=== PATIENT | male | born 1965 | race Caucasian/White ===

== ENCOUNTER → 2018-03-09 07:11 | Outpatient (CLI) | payer MEDICARE, SELFPAY ==
--- NOTE | 2018-03-09 10:15 | NEURO ---
NCS and/or EMG Patient Report Ordering Doctor: Cony Le DATE OF SERVICE: 03/09/18 This is a left upper extremity nerve conduction study and EMG performed on this 52-year-old male with a long history of neck pain and loss of sensation into his fourth third and fifth digits. He apparently had a fall in 2011 due to neck pain, in 2012 he had a lower cervical discectomy and has been told recently that he has an upper thoracic disc issue now. Examination there is a sensory level from his left T2-T5 posteriorly Left upper extremity sensory and motor nerve conduction study is performed demonstrating mild prolongation of the median motor distal latency at the wrist with intact amplitude and conduction velocity. More significantly the ulnar distal latency is prolonged across the elbow with reduction in amplitude across the elbow and mild reduction in conduction velocity. The ulnar F wave is is prolonged compared to the median F-wave. The radial sensory, ulnar sensory and median sensory responses are intact. Left upper extremity needle electromyography is performed. Muscles evaluated included the first dorsal osseous abductor pollicis brevis and abductor digiti quinti brachioradialis biceps triceps deltoid muscles and left C7, T1 and T2 paraspinal muscles. All muscles in the arm demonstrated normal insertional activity with absence of pathologic spontaneous activity with normal motor unit recruitment pattern and amplitude however at the T2 level on the left the patient did demonstrate fibrillation potentials and fasciculation potentials. Impression: 1. T2 radiculopathy 2. Left ulnar neuropathy at the elbow. 3. Mild median neuropathy at the left wrist this is likely an incidental finding
== END ==
PROVIDERS: Family Provider Family Medicine; PCP Family Medicine; Visit Provider Family Medicine
DX: M50.23 Other cervical disc displacement, cervicothoracic region (principal)
CPT/HCPCS: 95886; 95909

== ENCOUNTER → 2018-08-05 09:33 | Outpatient (CLI) | payer MEDICARE, SELFPAY ==
--- NOTE | 2018-08-05 09:36 | RAD_ITS ---
STUDY: X-RAY - RIGHT HAND, ATTENTION FIRST FINGER REASON FOR EXAM: Male, 53 years old. Trauma TECHNIQUE: 3 view(s) of the finger were obtained. COMPARISON: None. FINDINGS: Normal metacarpal head. Normal metacarpophalangeal joint. Normal proximal phalanx. Normal middle phalanx. Normal distal phalanx. Normal proximal interphalangeal joint. Normal distal interphalangeal joint. RAD/Finger(s) Min 2 Views IMPRESSION: Normal x-ray examination of the finger. Electronically Signed: John Manzano MD at 16:56 EDT , Service support ,
== END ==
PROVIDERS: Family Provider Family Medicine; PCP Family Medicine; Visit Provider Family Medicine
DX: S69.91XA Unspecified injury of right wrist, hand and finger(s), initial encounter (principal)
CPT/HCPCS: 73140

== ENCOUNTER → 2018-08-26 16:16 | Outpatient (CLI) | payer MEDICARE, SELFPAY ==
--- NOTE | 2018-08-26 16:20 | RAD_ITS ---
STUDY: X-RAY - CERVICAL SPINE REASON FOR EXAM: Male, 53 years old. fusion in 2013, neck pain and stiffness TECHNIQUE: 6 view(s) of the cervical spine were obtained. COMPARISON: None FINDINGS: Normal anterior atlantoaxial articulation. Normal odontoid process. There is straightening of the normal cervical lordosis. There is multi-level endplate spondylosis. There is multi-level degenerative disc disease with multilevel disc space narrowing. There is multi-level osseous foraminal stenosis. The soft tissue structures are unremarkable. RAD/Cerv Spine 4 or 5 Views IMPRESSION: There is multi-level degenerative disc disease with multilevel disc space narrowing. There is multi-level osseous foraminal stenosis. Electronically Signed: Sj Solis MD at 14:31 EDT Tel , Service support ,
== END ==
PROVIDERS: Family Provider Family Medicine; PCP Family Medicine; Referring Provider Family Medicine; Visit Provider Family Medicine
DX: M50.30 Other cervical disc degeneration, unspecified cervical region (principal)
CPT/HCPCS: 72050

== ENCOUNTER → 2020-01-11 12:22 | Outpatient (CLI) | payer MEDICARE, SELFPAY ==
[2020-01-11 14:29] LABS: Anion Gap 2 (5-15); BUN 16 mg/dL (7-18); BUN/Creat Ratio 17.4 RATIO (10-20); Calcium,Total 9.1 mg/dL (8.5-10.1); Chloride 111 mmol/L (98-107); Creatinine, Serum 0.92 mg/dL (0.70-1.30); EST Glomerular Filtration Rate 91 mL/min (>60); Est Glom Filt Rate - Afr Amer 110 mL/min (>60); Glucose 80 mg/dL (74-106); Potassium 4.5 mmol/L (3.5-5.1); Sodium Level 143 mmol/L (136-145)
== END ==
PROVIDERS: PCP Family Medicine; Referring Provider Family Medicine; Visit Provider Family Medicine
DX: Z00.00 Encounter for general adult medical examination without abnormal findings (principal)
CPT/HCPCS: 36415; 80048

== ENCOUNTER 2020-01-27 08:29 | Day surgery (SDC) | payer MEDICARE, SELFPAY ==
[2020-01-27 09:08] VITALS: BP 110/64; PULSE 68; RESP 169; TEMP 36.8; O2SAT 96; BMI 23.3
[2020-01-27] MEDS: Lactated Ringers 1,000 ML 100 ML IV (09:14)
--- NOTE | 2020-01-27 10:00 | HP.PCM_ITS ---
History of Present Illness Date of Admission: 01/27/20 The patient is a 54 year old M here for screening colonoscopy. The patient is never had a screening colonoscopy. He has no family history of colon cancer. He denies any abdominal pain or blood in his stool. Past Medical/Surgical History - Planned Operation Planned Operative Procedure/s: COLONOSCOPY Date of Operative Procedure: 01/27/20 Permit Signed: Yes S.O.S: No Is This Patient Having a Total Joint: No - Previous Hospitalizations/Surgeries HX Hospitalizations: No HX of Surgeries: FUSION IN NECK. R ARM BROKEN Any Problems With Anesthesia: No You/Your Family Experience Fever (Hyperthermia) With Anes: No Cholinesterase deficiency: No - Cardiovascular Hx Chest Pain within Last 2 months: No Hx of Irregular Heartbeat and/or Afib: No Hx Heart Attack: No Hx Congestive Heart Failure: No Hx Rheumatic Fever: No Hx Hypertension: No Hx Internal Defibrillator: No Hx Pacemaker: No Hx Cardiac Catheterization: No Hx Cardiac Surgery/Stents/Etc.: No Hx Stress Test: No HX Edema: No Hx Pain in Legs when Walking/Leg Cramps: No - Respiratory Chronic Cough: No HX of Shortness of Breath: No Hoarseness: No Hx Chronic Obstructive Pulmonary Disease (COPD): No Hx Asthma: No Hx Emphysema: No Hx Sleep Apnea: No Hx Oxygen Use at Home: No Hx Respiratory Tract Infection/Cold (presently): No Do You Snore Loudly (louder than talking or can be heard): No Do You Often Feel Tired/ Fatigued/ Sleepy Dring Daytime?: No Has Anyone Observed You Stop Breathing During Sleep?: No Result (for STOP score): Negative Hx Smoking: Yes Smoking Status: Former smoker - Gastrointestinal Hx Gastroesophageal Reflux: No Hx Gastrointestinal Disorders: No Hx Gastrointestinal Bleed: No Hx Ulcer: No Hx Hiatal Hernia: No Difficulty Chewing/Swallowing: No Recent Onset of Swallowing Problems: No Special diet followed at home: No Hx Unplanned Weight Loss of 20#: No HX Unplanned Weight Gain of 20#: No - Neurological Hx Seizures: No HX Syncope/Blackout Spells/Unconsciousness: No Hx CVA/Stroke: No Hx Transient Ischemic Attacks (TIA): No Hx Multiple Sclerosis: No Hx Parkinson's Disease: No Hx Head/Neck Injury: Yes - SURGERY-HERNIATED, NERVE DAMAGE Hx Headaches: No Hx Back Injury/Pain: No Recent Onset of Speech Difficulty: No Restless Legs: No Does patient have nerve stimulator: No - Blood Disorder Hx Leukemia: No Bleeding Tendencies: No Hx Deep Vein Thrombosis: No Hx High Cholesterol: No Blood Transmitted Disease: No Hx Hepatitis: No Hx Cirrhosis: No Hx Anemia: No Hx Blood Disorders: No - Genitourinary Hx Renal Disease: No - Musculoskeletal Hx Arthritis: Yes Hx Rheumatoid Arthritis: No Hx Gout: No Recent Onset of an Orthopedic Problem: No - Endocrine Hx Diabetes: No Thyroid Disease: No Hx Steroid Therapy: No - Psycho/Social Hx Substance Use: No Hx Alcohol Use: Yes - RARELY Hx Anxiety: No Hx Depression: No Mental Illness: No Hx Dementia: No - Miscellaneous Hx Cancer: No Recent Exposure to Contagious Disease: No Active MRSA: No Hx of C-Diff: No Any Loose Teeth: No Allergies Penicillins [PCN] Allergy (Verified 01/27/20 09:07) Itching Sulfa (Sulfonamide Antibiotics) Allergy (Verified 01/27/20 09:07) Unknown HAD ALLERGY TESTING CHILD- THIS WAS ON REPORT - Discharge Is Pt Admitted From a Long-Term, or a Detention: No Who Could Help: NEIGHBOR After D/C, Where Do you Plan to Go: Return Home - Physical Exam Vitals/I&O's: Vital Signs Temp Pulse Resp BP Pulse Ox 98.2 F 68 169 H 110/64 96 01/27/20 09:08 01/27/20 09:08 01/27/20 09:08 01/27/20 09:08 01/27/20 09:08 Oxygen Delivery Method Room Air Weight: 167 lb 12.348 oz Body Mass Index (BMI) 23.3 General: Alert, Oriented x3 Lungs: Normal air movement Cardiovascular: Regular rate, Regular Rhythm Abdomen: Soft, Non Tender, Non-Distended Current Medications Lactated Ringer's () 1,000 mls @ 100 mls/hr IV .Q10H JUDI Last Admin: 01/27/20 09:14 Dose: 100 mls/hr Documented by: Assessment/Plan 54-year-old male for screening colonoscopy I explained endoscopy in detail to the patient. I explained the risks including but not limited to stroke or heart attack with anesthesia, perforation of the GI tract, bleeding, infection. I explained that any of these could necessitate further emergency surgery. The patient understands and all questions were answered sufficiently. The patient wishes to proceed with procedure. Lisandro Dailey MD Pager: [facility] [address] [place] [address] [address] [place] [address] Office: Surgery Risks - Colonoscopy Risks Include but are not Limited To: Risks include but are not limited to: Bleeding, perforation requiring further surgery, inability to complete colonoscopy requiring barium enema.
--- NOTE | 2020-01-27 10:33 | OP.COLON_ITS ---
Patient Name: Christoph Arrington Procedure Date: 01/27/2020 10:01 AM Date of : 1965 Age: 54 Procedure: Colonoscopy Indications: Screening for colorectal malignant neoplasm Providers: Lisandro Dailey MD Referring MD: Cony Le Medicines: Monitored Anesthesia Care Patient Profile: This is a 54 year old male. Refer to note in patient chart for documentation of history and physical. Last Colonoscopy: none. The patient's first colonoscopy is today. Complications: No immediate complications. Procedure: Pre-Anesthesia Assessment: - Prior to the procedure, a History and Physical was performed, and patient medications and allergies were reviewed. The patient's tolerance of previous anesthesia was also reviewed. The risks and benefits of the procedure and the sedation options and risks were discussed with the patient. All questions were answered, and informed consent was obtained. Prior Anticoagulants: The patient has taken no previous anticoagulant or antiplatelet agents. After reviewing the risks and benefits, the patient was deemed in satisfactory condition to undergo the procedure. After I obtained informed consent, the scope was passed under direct vision. Throughout the procedure, the patient's blood pressure, pulse, and oxygen saturations were monitored continuously. The pediatric colonoscope was introduced through the anus and advanced to the cecum, identified by appendiceal orifice and ileocecal valve. The colonoscopy was performed without difficulty. The patient tolerated the procedure well. The quality of the bowel preparation was good. Scope In: 10:12:20 AM Scope Withdrawal Time 0 hours 6 minutes 9 seconds Scope Out: 10:31:25 AM Total Procedure Duration Time 0 hours 19 minutes 5 seconds Findings: The entire examined colon appeared normal on direct and retroflexion views. Impression: - The entire examined colon is normal on direct and retroflexion views. - No specimens collected. Recommendation: - Discharge patient to home. - Resume previous diet. - Continue present medications. - Repeat colonoscopy in 10 years for screening purposes. Procedure Code(s): --- Professional --- 18522, Colonoscopy, flexible; diagnostic, including collection of specimen(s) by brushing or washing, when performed (separate procedure) Diagnosis Code(s): --- Professional --- Z12.11, Encounter for screening for malignant neoplasm of colon CPT copyright 2017 [employer]. All rights reserved. The codes documented in this report are preliminary and upon resource management planner review may be revised to meet current compliance requirements. Lisandro Dailey MD 01/27/2020 10:33:19 AM This report has been signed electronically. Number of Addenda: 0 Note Initiated On: 01/27/2020 10:01 AM
--- NOTE | 2020-01-27 10:34 | OP.CCLET_ITS ---
01/27/2020 Cony Le [address] [place] [address] Re : Colonoscopy procedure for Christoph Murphy Dear Dr. Le This procedure was performed on Monday, January 27, 2020. My impressions and recommendations are as follows: Impressions : - The entire examined colon is normal on direct and retroflexion views. - No specimens collected. Recommendations : - Discharge patient to home. - Resume previous diet. - Continue present medications. - Repeat colonoscopy in 10 years for screening purposes. My findings are described in the full procedure note, which is enclosed. If I can be of further assistance, please feel free to contact me at Doctor phone number(s): , Work: . Sincerely, Lisandro Dailey MD 01/27/2020 10:33:19 AM This report has been signed electronically.
[2020-01-27 10:35] VITALS: BP 110/64; BP 89/47; PULSE 59; RESP 16; TEMP 37.1; O2SAT 100
[2020-01-27 10:40] VITALS: BP 110/64; BP 83/44; PULSE 59; RESP 14; O2SAT 99
[2020-01-27 10:45] VITALS: BP 100/62; BP 110/64; PULSE 58; RESP 14; O2SAT 97
[2020-01-27 10:51] VITALS: BP 110/64; BP 99/58; PULSE 82; RESP 14; TEMP 36.8; O2SAT 100
[2020-01-27 11:20] VITALS: BP 110/64
== END 2020-01-27 11:22 | disposition home or self-care (01) ==
LOC: EN 08:30 → AC 08:33
PROVIDERS: PCP Family Medicine; Referring Provider Family Medicine; Visit Provider Surgery
PROC: 0DJD8ZZ Inspection of Lower Intestinal Tract, Via Natural or Artificial Opening Endoscopic (ICD-10-PCS; CPT 45378; principal; 2020-01-27 09:55)
DX: Z12.11 Encounter for screening for malignant neoplasm of colon (principal); Z87.891 Personal history of nicotine dependence
CPT/HCPCS: G0121; J7120; J2405

== ENCOUNTER 2020-07-24 13:57 | Emergency (ER) | payer MEDICARE, SELFPAY ==
[2020-07-24 13:58] VITALS: BP 132/89; PULSE 76; RESP 16; TEMP 36.8; O2SAT 99; BMI 24.5
--- NOTE | 2020-07-24 13:59 | NURSING ---
NO OLD EKGS
--- NOTE | 2020-07-24 14:10 | EKG12_ITS ---
Test Reason : CP Blood Pressure : / mmHG Vent. Rate : 072 BPM Atrial Rate : 072 BPM P-R Int : 188 ms QRS Dur : 084 ms QT Int : 408 ms P-R-T Axes : 059 074 020 degrees QTc Int : 446 ms Normal sinus rhythm Normal ECG Confirmed by KEN HAMMOND, MILES ([id number]), newspaper editor managing KUMAR MORALES ([id number]) on 07/26/2020 10:51:51 AM Referred By: LEWIS Confirmed By:MILES ROGERS MD
--- NOTE | 2020-07-24 14:11 | RAD_ITS ---
STUDY: X-RAY CHEST REASON FOR EXAM: Male, 55 years old. Sudden onset CP this morning TECHNIQUE: PA and lateral views of the chest. COMPARISON: None. FINDINGS: EKG electrodes are seen. The lungs are clear and expanded. Scattered calcified granulomas. Pectus excavatum deformity. There is no demonstrated pleural abnormality. Normal size heart. Normal mediastinum and abdirizak. Normal visualized pulmonary arteries. Normal visualized aortic arch and descending thoracic aorta. There are degenerative changes of the visualized thoracic spine. Normal visualized ribs, clavicles, and shoulders. There is no demonstrated abnormality of the visualized soft tissue structures of the upper abdomen. RAD/Chest PA and Lateral IMPRESSION: Scattered calcified granulomas. Electronically Signed: Kelby oMntero, at 15:08 EDT , Service support ,
--- NOTE | 2020-07-24 14:11 | ED.VIS.GEN ---
History of Present Illness Chief Complaint: Chest Pain Narrative: Patient is a 55-year-old male who presents with chest pain. 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 At about 5:00 this morning when he woke he had left-sided chest pain. He states it feels like he was kicked by horse. He does have pain with inspiration palpation or certain movements such as twisting to the left. He has not short of breath. No diaphoresis nausea or vomiting. He is otherwise been healthy recently. No recent illness. He is a smoker. He denies history of diabetes, hypertension, hyperlipidemia. No recent travel or surgery. No leg pain or swelling. No history of DVT or pulmonary embolism. Past Medical History - Allergies and Home Meds Allergies/Adverse Reactions: Allergies Penicillins [PCN] Allergy (Verified 07/24/20 13:57) Itching Sulfa (Sulfonamide Antibiotics) Allergy (Verified 07/24/20 13:57) Unknown HAD ALLERGY TESTING CHILD- THIS WAS ON REPORT Primary Care Physician: Cony Le MD [Primary Care Provider] - Past Medical History: - - Cervical radiculopathy, prior cervical spinal surgery Smoking Status: Current every day smoker Review of Systems All systems negative except as indicated General: Denies: Fever Eyes: Denies: Visual changes - bilaterally ENT: Denies: Bilateral ear pain Cardiovascular: Reports: Chest pain Respiratory: Denies: Dyspnea Gastrointestinal: Denies: Nausea, Vomiting Musculoskeletal: Denies: Myalgias, Arthralgias Skin: Denies: Rash Neurological: Denies: Headache Hematologic: Denies: Easy bruising Allergy: Denies: Uticaria Physical Exam Vital Signs/Narrative: Vital Signs Temp Pulse Resp BP Pulse Ox 07/24/20 13:58 98.2 F 76 16 132/89 H 99 Inital Vital Signs reviewed: Yes General: Well nourished Head: Normocephalic Eyes: EOMI ENT: Moist mucous membranes Neck: Supple Cardiovascular: Regular rate, Regular rhythm Respiratory: No distress, CTA bilaterally, Chest tenderness - Some reproducible chest tenderness along the left costochondral margin Abdomen: Soft, Nontender Extremities: Nontender Skin: Normal color Neurological: Alert Psychological: Normal affect Diagnostic/Tx/Re-eval Impressions Chest X-Ray 07/24/20 14:11 IMPRESSION: Scattered calcified granulomas. Electronically Signed: Kelby Montero, at 15:08 EDT , Service support , 07/24/20 14:11 Chest PA and Lateral [RAD] Stat Laboratory Results 07/24/20 07/24/20 14:00 14:00 WBC 7.8 RBC 4.73 Hgb 15.0 Hct 44.2 MCV 93.4 MCH 31.7 MCHC 33.9 RDW Std Deviation 45.6 H RDW Coeff of Paul 13.2 Plt Count 272 MPV 11.2 Immature Gran % (Auto) 0.400 Neut % (Auto) 57.4 Lymph % (Auto) 32.9 [place] % (Auto) 7.3 Eos % (Auto) 1.5 Baso % (Auto) 0.5 Absolute Neuts (auto) 4.5 Absolute Lymphs (auto) 2.58 Nucleated RBC % 0 Sodium 140 Potassium 3.9 Chloride 109 H Carbon Dioxide 28.0 Anion Gap 3 L BUN 12 Creatinine 0.95 Estim Creat Clear Calc 90.72 Est GFR (MDRD) Af Amer 106 Est GFR (MDRD) Non-Af 87 BUN/Creatinine Ratio 12.6 Glucose 132 H Calcium 8.9 Troponin I < 0.015 - Medical Decision Making EKG shows sinus rhythm at a rate of 72 with no acute ischemic changes. Chest x-ray shows no acute process. Labs are unremarkable with a negative troponin. Heart score is 2. The presentation is most consistent with chest wall strain. He was given oxycodone here. He was given a prescription for short course of analgesics and advised on supportive care. He understands return for new or worsening symptoms. All questions answered at bedside and patient discharged. ED Disposition - Plan for ED Patient: Disposition: Home or Assisted Living Diagnosis: Chest wall pain Instructions: ED CHEST PAIN [place] Prescriptions: Oxycodone HCl/Acetaminophen [Percocet 5/325] 1 tab PO Q6H PRN PRN 2 Days #8 tab PRN Reason: Pain Prescription Printed Referrals: Cony Le MD [Primary Care Provider] -
[2020-07-24 14:23] LABS: Absolute Lymphocyte Count 2.58 X10^3/uL (0.83-4.51); Absolute Neutrophil Count 4.5 X10^3/uL (2.0-7.7); Basophil# 0.04 X10^3/uL; Basophil% 0.5 % (0-1); Eosinophil# 0.12 X10^3/uL; Eosinophils% 1.5 % (0-5); Hematocrit 44.2 % (40-54); Lymphocyte # 2.58 X10^3/ul (4.0); Lymphocyte % 32.9 % (19-41); Mean Corp Hgb Conc 33.9 g/dL (32-36); Mean Corpuscular Hgb 31.7 pg (27.0-32.0); Mean Corpuscular Volume 93.4 fL (80-94); Mean Platelet Vol. 11.2 fl (6.2-12.0); Monocyte# 0.57 X10^3/uL; Monocyte% 7.3 % (0-10); NRBC Flagged by Analyzer 0 % (0-5); Neutrophil % 57.4 % (47-70); Platelet Count 272 K/mm3 (150-450); RBC Distribution Width CV 13.2 % (11.6-14.6); RBC Distribution Width SD 45.6 fl (35.1-43.9); Red Blood Count 4.73 M/mm3 (4.6-6.2); White Blood Count 7.8 K/mm3 (4.4-11.0)
[2020-07-24 14:35] LABS: Anion Gap 3 (5-15); BUN 12 mg/dL (7-18); BUN/Creat Ratio 12.6 RATIO (10-20); Calcium,Total 8.9 mg/dL (8.5-10.1); Chloride 109 mmol/L (98-107); Creatinine, Serum 0.95 mg/dL (0.70-1.30); EST Glomerular Filtration Rate 87 mL/min (>60); Est Glom Filt Rate - Afr Amer 106 mL/min (>60); Estimated Creatinine Clearance 90.72 ml/min; Glucose 132 mg/dL (74-106); Potassium 3.9 mmol/L (3.5-5.1); Sodium Level 140 mmol/L (136-145)
[2020-07-24] MEDS: oxyCODONE 5 MG Tablet PO (14:35)
[2020-07-24 15:29] VITALS: BP 99/67; PULSE 59; RESP 16; RESP 17; O2SAT 97
== END 2020-07-24 15:30 | disposition home or self-care (01) ==
PROVIDERS: Emergency Provider Emergency Medicine; PCP Family Medicine
DX: R07.89 Other chest pain (principal); F17.200 Nicotine dependence, unspecified, uncomplicated
CPT/HCPCS: 71046; 80048; 84484; 85025; 93005; 99285; A4216

== ENCOUNTER → 2023-02-23 | Outpatient (CLI) | payer MEDICARE, SELFPAY ==
--- NOTE | 2023-02-23 16:04 | RAD_ITS ---
INDICATION: PAIN IN HEEL/ FOOT EXAMINATION/TECHNIQUE: X-RAY - LEFT XR Foot Min 3 Views COMPARISON: None. FINDINGS: SOFT TISSUES: No significant soft tissue swelling. No radiopaque foreign body detected. BONES/JOINTS: No acute fracture or subluxation. Normal alignment. Preservation of the joint space(s). No suspicious osseous lesion observed. RAD/Foot min 3 Views IMPRESSION: Negative left foot. Electronically Signed: Eliu Arriola MD at 1:50 EDT ,
== END | disposition home or self-care (01) ==
PROVIDERS: PCP Family Medicine; Referring Provider Family Medicine; Visit Provider Family Medicine
DX: M79.672 Pain in left foot (principal)
CPT/HCPCS: 73630

== ENCOUNTER → 2023-06-05 | Outpatient (CLI) | payer MEDICARE, SELFPAY ==
--- NOTE | 2023-06-05 14:52 | RAD_ITS ---
INDICATION: pain and hyperflexion injury EXAMINATION/TECHNIQUE: X-RAY - XR Spine Cervical 6 or More Views COMPARISON: Prior comparison exam dated August 26, 2018, cervical spine. FINDINGS: Straightening of the normal cervical lordosis without focal malalignment. C7-T1 anterior fusion plate hardware without complication. Advanced degenerative disc and endplate changes C3-4, C4-5 and C5-6 and C6-7 levels. Facet arthropathy most notably at C5-6. Minimal motion on flexion and extension views. Bilateral oblique views show no evidence of significant bony neural foraminal narrowing. There is some minimal neural foraminal narrowing from uncovertebral joint arthropathy at C5-6 on the left. Normal C1-C2 lateral patellar alignment with intact odontoid process. Visualized thoracic vertebrae are within normal limits of the exam on swimmer''s view. No prevertebral soft tissue swelling or abnormal soft tissue calcifications. Lung apices included in the [id number] are normal. RAD/Cerv Spine Obl/Flex/Ext Comp IMPRESSION: Chronic degenerative changes as above with no fracture or focal malalignment. Limited motion on flexion and extension views. Electronically Signed: Arun Wayne DO at 22:52 EDT ,
== END | disposition home or self-care (01) ==
LOC: MTRAD 14:52
PROVIDERS: PCP Family Medicine; Referring Provider Family Medicine; Visit Provider Family Medicine
DX: M50.30 Other cervical disc degeneration, unspecified cervical region (principal)
CPT/HCPCS: 72052

== ENCOUNTER → 2025-06-22 | Outpatient (CLI) | payer MEDICARE, SELFPAY ==
--- NOTE | 2025-06-22 10:15 | RAD_ITS ---
PROCEDURE: HAND MIN 3 VIEWS 06/22/2025 REASON FOR EXAM: HAND LESION TECHNIQUE: HAND MIN 3 VIEWS COMPARISON: No FINDINGS: Scattered minimal wrist and hand osteoarthritis. No acute bone or soft tissue pathology. RAD/Hand Min 3 Views IMPRESSION: No acute findings. Reading Location: [place] [address]
== END | disposition home or self-care (01) ==
PROVIDERS: PCP Family Medicine; Referring Provider Surgery Plastic and Reconstructive Surgery; Visit Provider Surgery Plastic and Reconstructive Surgery
DX: L98.9 Disorder of the skin and subcutaneous tissue, unspecified (principal)
CPT/HCPCS: 73130

== ENCOUNTER 2025-07-12 09:00 | Day surgery (SDC) | payer MEDICARE, SELFPAY ==
[2025-07-12] VITALS (8 sets, daily range): BP systolic 95–131; BP diastolic 56–76; PULSE 40–49; RESP 16; TEMP 36.9–37; O2SAT 95–100; BMI 24.6
--- NOTE | 2025-07-12 07:30 | HP.PCM.SX_ITS ---
HPI - General HPI Narrative EMILY GOODWIN, is a 60 M who is presenting with a suspected epidermal inclusion cyst. The cyst likely resulted from improper healing of a laceration, with the skin folding over itself. PFSH Medical History Arthritis Former smoker Home Medications ?Medication ?Instructions ?Recorded ?Last Taken ?Type pregabalin 200 mg capsule 200 mg PO TID 07/05/25 Unkno wn History Allergy/AdvReac Type Severity Reaction Status Date / Time Penicillins (PCN) Allergy Itching Verified 07/05/25 08:21 Sulfa (Sulfonamide Allergy Unknown Verified 07/05/25 08:21 Antibiotics) Surgical History (Updated 07/05/25 @ 08:30 by Dilia Clark) Hx of cervical spine surgery Hx of colonoscopy Social History Smoking Status: Former smoker Physical Exam Narrative Inspection/palpation: Droopy finger on the right small finger, DIP mallet finger. There is a 1 x 1 cm subcutaneous nodule consistent with a potential inclusion cyst on the ulnar volar aspect of the palm at the base of the small finger Motor: Able to bend and extend all MP, PIP, and DIP joints. Sensory: Intact to light touch on the radial and ulnar borders. Vascular: Finger tips are warm and well perfused with greater than 2 second capillary refill. Assessment & Plan Assessment/Plan (1) Hand lesion: PLAN: INTERVAL H&P PLAN, DATE OF SURGERY: We will proceed with surgery today. I talked to the patient extensively about the risks of surgery, including bleeding, infection, damage to surrounding structures (especially nerves leading to pain or numbness) , poor scaring, surgical site dehiscence and wound formation, need for wound care, need for repeat operations, failure to obtain the desired result, DVT/PE, and the risks of anesthesia including , including stroke (from low blood pressure/ischemia or clot). The benefits and alternatives of this surgery were also discussed. All of their questions were answered, and they agreed to proceed with surgery. Right hand marked for excision in the OR Patient happy with the plan
[2025-07-12] MEDS: Lactated Ringers 1,000 ML 15 ML IV (09:49)
--- NOTE | 2025-07-12 10:03 | PCM.PRE.AN2 ---
ASA Classification* ASA Classification ASA Classification: 2 Assessment & Plan Anesthesia* Anesthesia Assessment Anesthesia Assessment: Discussed sedation and/or anesthesia options, risks, benefits, and alternatives with patient/parents/legal guardian/POA. Questions invited. The patient/parents/legal guardian/POA seems to understand and agrees to proceed with anesthesia plan. Reviewed the physical assessment, medical history, allergy history and patient home medications list prior to surgery/procedure/anesthetic and documented any changes. Performed airway and anesthesia risk assessments. Anesthesia Type Anesthesia Type: MAC History Source History Obtained from:: Patient and Chart Anesthesia Focused Assessment* Temperature: 98.5 F Pulse Rate: 48 Blood Pressure: 131/75 Respiratory Rate: 16 Pulse Ox: 100 Oxygen Delivery Method: Room Air Airway Assessment Mouth opens: >3 cm Mallampati Score: III Teeth Condition: Missing (Patient several missing teeth. Rest of the teeth are tight.) Neck Range of motion (ROM): Limited ROM (Severe Restriction) Labs Anesthesia Preop lab: CBC WBC 7.8 K/mm3 (4.4-11.0) 07/24/20 14:00 07/24/20 RBC 4.73 M/mm3 (4.6-6.2) 07/24/20 14:00 07/24/20 Hgb 15.0 g/dL (13.0-16.5) 07/24/20 14:00 07/24/20 Hct 44.2 % (40-54) 07/24/20 14:00 07/24/20 Plt Count 272 K/mm3 (150-450) 07/24/20 14:00 07/24/20 CHEMISTRY Potassium 3.9 mmol/L (3.5-5.1) 07/24/20 14:00 07/24/20 Sodium 140 mmol/L (136-145) 07/24/20 14:00 07/24/20 BUN 12 mg/dL (7-18) 07/24/20 14:07/24/20 Creatinine 0.95 mg/dL (0.70-1.30) 07/24/20 14:00 07/24/20 Glucose 132 mg/dL (74-106) H 07/24/20 14:00 07/24/20 COAG Pre-Assessment Diagnosis/Proposed Procedure Planned Operative Procedure(s): EXCISION OF RIGHT PALM LESION Anesthesia History Anesthesia History - chemist water purification: Anesthesia History - chemist water purification Hx Hospitalization No 07/05/25 08:23 Any Problems With Anesthesia No 07/05/25 08:23 Cholinesterase deficiency No 07/05/25 08:23 You/Your Family Experience No 07/05/25 08:23 fever (hyperthermia) with Relationship Recent Exposure to Contagious No 07/12/25 09:46 Disease Does patient have nerve No 07/05/25 08:23 stimulator Patient instructed to have device shut off --Does patient have Pacemaker No 07/12/25 09:43 or ICD? When Was Last Pacemaker Check QUESTION #4 FULL TEXT: You/Your Family Experience fever (hyperthermia) with Anesthesia Last Oral Intake Last Oral intake: Last Oral Intake NPO since 05:30 07/12/25 09:43 Meds taken in AM with sips of water? Meds patient instructed to take am of surgery Any additional information?: Yes NPO since: 05:30 (Patient had half cup black coffee at 5:30 AM.) Meds taken in AM with sips of water?: No PONV PONV - chemist water purification: PONV - chemist water purification Female No 07/05/25 08:23 HX of Motion Sickness No 07/05/25 08:23 HX of N/V After Surgery No 07/05/25 08:23 Non-Smoker Yes 07/05/25 08:23 Duration of Surgery greater No 07/05/25 08:23 than 60 minutes Number of Risk Factors 1 07/05/25 08:23 PONV Score Low Risk 07/05/25 08:23 Height & Weight Height & Weight: Anesthesia: Height & Weight Height 5 ft 10 in 07/12/25 09:43 Weight: 78 kg 07/12/25 09:43 Body Mass Index (BMI) 24.6 07/12/25 09:43 Respiratory Assessment Respiratory Assessment - chemist water purification: Respiratory Tract Infection Hx - chemist water purification Hx Respiratory Tract Infection No 07/05/25 08:23 STOP Sleep Apnea STOP Sleep Apnea - chemist water purification: STOP Sleep Apnea - chemist water purification Hx Hypertension No 07/05/25 08:23 Hx Sleep Apnea No 07/05/25 08:23 CPAP BIPAP Do you snore loudly (louder No 07/05/25 08:23 than talking or can be heard Do you often feel tired/ No 07/05/25 08:23 fatigued/ sleepy during daytime? Has anyone observed you stop No 07/05/25 08:23 breathing during sleep? STOP Results Negative 07/05/25 08:23 QUESTION #5 FULL TEXT : Do you snore loudly (louder than talking or can be heard through closed doors)? Tobacco Use History Tobacco Use History - chemist water purification: Tobacco Use History - chemist water purification Tobacco Use Smoking Status Former smoker 07/05/25 08:23 Hx Tobacco Use Yes 07/05/25 08:23 Years Smoking Packs Smoked per Day Smoking Cessation Date was Yes - quit smoking within 15 07/05/25 08:23 within the last 15 years years Hx Smoking Cessation Date 05/22/25 07/05/25 08:23 Hx Smoking Cessation Counseling Hematologic Medial History Hematologic Hx - chemist water purification: Hematologic Medical Hx - loan funder Hx of Blood Transfusion No 07/05/25 08:23 Hx of Transfusion in last 3 No 07/05/25 08:23 Months Date of Last Transfusion (if within last 3 months) Ever experience any problems No 07/05/25 08:23 with transfusion(s)? Specify any problems Hx of Preganancy in last 3 N/A 07/05/25 08:23 Months Nurse Filling Out Transfusion DSCHRIBER 07/05/25 08:23 & Questions: Date: 07/05/25 07/05/25 08:23 Time: 08:24 07/05/25 08:23 Patient unable to answer at this time (ie. confused, unrespo /Reproduction History /Reproductive History - chemist water purification: /Reproductive Hx- chemist water purification Hx Now No 07/05/25 08:23 Gestational Age (in weeks): EDC: Hx Hx Para Hx Section SAB No 07/05/25 08:23 Active Medications Active Medications: Current Medications Generic Name Dose Route Start Last Admin Trade Name Freq PRN Reason Stop Dose Admin Clindamycin Phosphate 900 mg in 50 mls @ 75 mls/hr 07/12/25 10:30 Cleocin IV 07/12/25 11:09 INTRAOP ONE Lactated Ringer's 1,000 mls @ 15 mls/hr 07/12/25 09:30 07/12/25 09:49 IV 15 mls/hr .Q48H JUDI Administration PFSH Medical History Arthritis Former smoker Home Medications ?Medication ?Instructions ?Recorded ?Last Taken ?Type pregabalin 200 mg capsule 200 mg PO TID 07/05/25 Unknown History Allergy/AdvReac Type Severity Reaction Status Date / Time Penicillins (PCN) Allergy Itching Verified 07/12/25 09:41 Sulfa (Sulfonamide Allergy Unknown Verified 07/12/25 09:41 Antibiotics) Surgical History Hx of cervical spine surgery Hx of colonoscopy Social History Smoking Status: Former smoker Review of Systems (Anesthesia) ROS Narrative System reviewed and no additional complaints, except as documented.
[2025-07-12] MEDS: Midazolam 2 MG/2 ML Syringe IV (10:26)
--- NOTE | 2025-07-12 10:30 | LES_PTH ---
PATIENT: EMILY GOODWIN LOC: [facility] [place] U#:[id number] AGE/SX: 60/M ROOM: RE07/12/[address]: Dr. Robby Lambert MD : 1965 BED: DIS: 07/12/2025 SPEC #: [id number] RECD: 07/12/25 12:19 STATUS: AMAN ISA #: [id number] BLESSING: 07/12/25 10:[address]: Robby Lambert DEPT: SURGICAL PATHOLOGY RECD BY: Truman Quiros ENTERED: 07/12/25 14:11 SP TYPE: Lesion OTHR DR: Aries Dia MD Tissues: A - Hand, NOS Procedures: Surgery Specimen Level IV HEADER OPERATION: Excision of right palm lesion PRE-OP DIAGNOSIS: Hand lesion TISSUE SUBMITTED: A- Right palm mass MICROSCOPIC DIAGNOSIS A. Skin, right hand, palm, excision: - Thick skin with benign epidermal invagination and hyperkeratosis - see note. Note: The findings are suggestive of clavus vs epidermal inclusion cyst. No malignant change is seen. MICROSCOPIC DESCRIPTION Slides are reviewed. GROSS DESCRIPTION A. Received in formalin labeled with the patient's name and date of . Designated as right palm lesion, is a 1.2 x 0.6 cm focally fragmented, bhatti skin ellipse excised to a maximum depth of 0.4 cm. The resection margin displays a 0.5 x 0.4 x 0.3 cm bhatti-white, intact nodule which focally spans to the epidermal surface. The resection margin is inked black. Sectioning reveals bhatti-yellow, fibrotic cut surfaces. Entirely submitted in 1 cassette. [place] 07/12/2025 CPT:33923
[2025-07-12] MEDS: fentaNYL 100 MCG/2 ML Ampul IV (10:36)
[2025-07-12] MEDS: Lidocaine 1% (5 ml sdv) 5 ML Vial IV (10:38)
[2025-07-12] MEDS: Lidocaine 1% (30 ml sdv) 30 ML Vial (10:48)
--- NOTE | 2025-07-12 11:04 | PCM.POST.ANE ---
Anesthesia: Postop Eval I Current Vital Signs Temperature: 98.6 F Pulse Rate: 45 Blood Pressure: 98/59 Respiratory Rate: 16 Pulse Ox: 95 Oxygen Delivery Method: Room Air Assessment Airway patent: Yes Spontaneous unlabored respirations: Yes Mental status: Awake and Calm nausea: No Vomiting: No Anesthesia Complication: No Fluid Hydration Crystalloid volume administer (ml): 500 Total IV fluid infused: 500 Progress Note Anesthesia document: Postop Eval 1 completed: Yes
--- NOTE | 2025-07-12 11:09 | SUR.PHASEI ---
SINUS BRADYCARDIA FROM 39-50'S, CONSISTENTLY IN 40'S. ASYMPTOMATIC, STATES I FEEL REAL GOOD. ZAMZMA IN 40'S FREQUENTLY THROUGHOUT CASE PER FREDERIC DUBOIS CRNA. WILL UPDATE DR ZEPEDA, ANESTHESIA.
--- NOTE | 2025-07-12 11:36 | PCM.OPRPT ---
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 Type of Anesthesia: Local MAC (7 cc of 50/50 mixture of 1% lidocaine and quarter percent Marcaine) RN Documented Start/Stop Times: Operation Date: 07/12/25 10:30 Case Time Into Pre-Op 07/12/25 09:25 Out of Pre-Op 07/12/25 10:14 Anesthesia Start 07/12/25 10:17 Into Room 07/12/25 10:17 Procedure Start 07/12/25 10:39 Procedure End 07/12/25 10:53 Anesthesia End 07/12/25 10:57 Out of Room 07/12/25 10:57 Into Recovery 07/12/25 11:00 Out of Recovery 07/12/25 11:26 Into Phase II Recovery 07/12/25 11:28 Procedure Start Time: 10:39 Procedure Stop Time: 10:53 Select all DRAINS/GRAFTS/IMPLANTS that apply: None Estimated Blood Loss: minimal Specimen collected: Yes Description of specimen(s) removed: Ulnar palm mass Description of surgery: Indications: Patient is delightful 60-year-old male with a right ulnar palm mass. Presents today for excision. Discussed risks, benefits, and alternatives and elected to proceed. Procedure details Patient was correct identified in preoperative holding and marked. He was taken to the operating room where he was prepped and draped in sterile fashion. Sedation was administered as was local as noted above. He was prepped and draped in sterile fashion. Timeout was performed. Tourniquet was insufflated to 250 mmHg and the arm 15 blade scalpel was used to make an elliptical excision around the lesion and tenotomy scissors were used to dissected around the capsule of the cyst/mass. It was removed in 1 piece with the overlying skin. This was done under loupe magnification. Hemostasis was obtained with bipolar electrocautery. The cyst measured 1 x 1 cm and was sent to pathology. The wound was irrigated with Irrisept and copious amounts normal saline. The wound was closed with interrupted horizontal mattress 4-0 nylon suture. This is a 1 cm simple closure. Patient tolerated procedure well. He was awakened taken the PACU in stable condition. Xeroform Kerlix and Coban were applied for dressing. Postoperative plan: Okay to remove dressing in 2 days and get the wound wet/shower. Follow-up in 1 week to review pathology and for wound check Surgical Findings: Likely epidermal inclusion cyst Complications Complications: No
== END 2025-07-12 11:55 | disposition home or self-care (01) ==
LOC: SDC 09:01 → AC 09:04
PROVIDERS: PCP Family Medicine; Referring Provider Surgery Plastic and Reconstructive Surgery; Visit Provider Surgery Plastic and Reconstructive Surgery
PROC: (CPT 26160; principal; 2025-07-12 10:20)
DX: L72.9 Follicular cyst of the skin and subcutaneous tissue, unspecified (principal); L85.9 Epidermal thickening, unspecified; Z87.891 Personal history of nicotine dependence
CPT/HCPCS: 26160; 01810; 88305; J2405

== ENCOUNTER → 2025-09-18 | Outpatient (CLI) | payer MEDICARE, SELFPAY ==
--- NOTE | 2025-09-18 15:55 | RAD_ITS ---
PROCEDURE: CERV SPINE OBL/FLEX/EXT COMP 09/18/2025 REASON FOR EXAM: DDD, PAIN TECHNIQUE: Procedure Code: RADSPCFE Modality: DX Procedure: CERV SPINE OBL/FLEX/EXT COMP COMPARISON: June 05, 2023 FINDINGS: There is hardware fusion at C7-T1 which appears intact. There is grade 1 retrolisthesis at C4-5, 0.3 cm with extension, 0 cm with flexion. There is loss of disc height from C3-7. Soft tissues are unremarkable. RAD/Cerv Spine Obl/Flex/Ext Comp IMPRESSION: There is hardware fusion at C7-T1 which appears intact. There is grade 1 retrolisthesis at C4-5, 0.3 cm with extension, 0 cm with flexi on. There is loss of disc height from C3-7. Reading Location: [facility]
== END | disposition home or self-care (01) ==
LOC: MTRAD 15:54
PROVIDERS: PCP Family Medicine; Referring Provider Family Medicine; Visit Provider Family Medicine
DX: M50.10 Cervical disc disorder with radiculopathy, unspecified cervical region (principal)
CPT/HCPCS: 72052